=== PATIENT | male | born 1980 | race Caucasian/White ===

== ENCOUNTER 2021-11-11 17:41 | Emergency (ER) | payer MEDICAID ==
[~2021-11-11] VITALS: Ht 175.3 cm; Wt 84.5 kg
[2021-11-11] MEDS ORDERED: ketorolac trometh inj. 60 MG/2 ML VIAL IM ONE (18:15)
[2021-11-11] MEDS ORDERED: acetaminophen 325mg tablet PO ONE (18:15)
[2021-11-11] MEDS ORDERED: ondansetron 4mg rapidly disintigrating tab PO ONE (18:15)
[2021-11-11] MEDS ORDERED: SUMAtriptan succ. 6 MG/0.5ml vial SQ ONE (18:15)
[2021-11-11 18:39] VITALS: BP 139/84
== END 2021-11-11 18:41 | disposition home or self-care (01) ==
LOC: ER 17:42
DX: G43.909 Migraine, unspecified, not intractable, without status migrainosus (principal)
CPT/HCPCS: 96372; 99284; J1885; J3030

== ENCOUNTER 2021-11-11 22:48 | Emergency (ER) | payer MEDICAID ==
[~2021-11-11] VITALS: Ht 175.3 cm; Wt 85.5 kg
[2021-11-11 23:13] VITALS: BP 143/98
[2021-11-12] MEDS ORDERED: diphenhydrAMINE 25mg capsule PO ONE (00:45)
[2021-11-12] MEDS ORDERED: predniSONE 20 mg tablet PO ONE (00:50)
== END 2021-11-12 01:15 | disposition home or self-care (01) ==
LOC: ER 22:48
DX: R11.10 Vomiting, unspecified (principal); T50.995A Adverse effect of other drugs, medicaments and biological substances, initial encounter; G43.909 Migraine, unspecified, not intractable, without status migrainosus; Y92.89 Other specified places as the place of occurrence of the external cause
CPT/HCPCS: 93005; 99283; J7512; Q0163

== ENCOUNTER 2024-11-08 06:22 | Emergency (ER) | payer MEDICAID, OTHER ==
[~2024-11-08] VITALS: Ht 172.7 cm; Wt 104.5 kg
[2024-11-08 06:43] LABS: MEAN PLATELET VOLUME 7.9 FL (7.4-10.4); RED CELL DISTRIBUTION WIDTH 14.7 % (11.5-14.5)
[2024-11-08 06:47] VITALS: BP 143/88; PULSE 89; RESP 16; TEMP 98.4; O2SAT 96
[2024-11-08 06:52] LABS: LEUKOCYTE ESTERASE ,URINE NEGATIVE (Neg); NITRITES, URINE NEGATIVE (Neg); OCCULT BLOOD,URINE NEGATIVE (Neg)
[2024-11-08 06:54] LABS: UA COLLECTION TYPE CLN CATCH MIDSTREAM
[2024-11-08 07:12] LABS: CREATININE 1.38 MG/DL (0.60-1.10); ETHANOL 114 MG/DL (<10); TOTAL CARBON DIOXIDE 23.1 MMOL/L (24-32); eCRCL 67 ML/MIN; eGFR 57 ML/MIN
--- NOTE | 2024-11-08 07:19 | Physician Documentation ---
History of Present Illness ~ Chief Complaint: 5150 Stated Complaint: HAND LAC Time Seen by MD: 06:28 Primary Medical Doctor: [facility] Mode of Arrival: EMS, Other HPI 44-year-old male presenting for suicidal thoughts. Patient reports that he got into a fight with his family and was abandoned here in [place]. His family abbey es in [place]. Reports that they were all up here camping together and he got into a huge argument with them and they left. He reports that this happened yesterday and that since that he has been having suicidal thoughts. Reports that he has been thinking about taking a whole bunch of medication and killing himself. The patient recently returned to [place] from [place] where he was in rehab for methamphetamine abuse and dependence. He states that he has been sober about eight months now. Medication Reconciliation Allergies: Coded Allergies: No Known Allergies (Unverified , 11/08/24) Scheduled Atorvastatin Calcium* (Lipitor*), 1 TAB PO DAILY, (Reported) Clopidogrel Bisulfate (Plavix), 1 TAB PO DAILY, (Reported) Irbesartan* (Avapro*), 1 TAB PO DAILY, (Reported) Pantoprazole Sodium (PROTONIX tablet), 1 TAB PO DAILY, (Reported) Quetiapine Fumarate (Seroquel), 1 TAB PO HS, (Reported) Sertraline Hcl* (Zoloft*), 1 TAB PO DAILY, (Reported) Trazodone HCl (Trazodone HCl), 1 TAB PO HS, (Reported) Scheduled PRN Rizatriptan Benzoate (Rizatriptan), 1 TAB PO BID PRN for headache, (Reported) Past Medical History Past Medical History: Migraine Past Surgical History: noncontributory Drug Use: none Lives In: Home Physical Exam Vital Signs: Temperature: 98.4, Source: Oral, Heart Rate: 89, Respiratory Rate: 16, BP: 143/88, Pulse Oximetry: 96, Weight: 104.550 Oxygen Flow Rate: 0 Physical Exam I have reviewed the triage vitals. CONST: Well developed and well nourished. In no acute distress HENT: Head Atraumatic EYES: Pupils are equal, round and reactive to light. Normal conjunctiva NECK: Normal range of motion. Supple. CARDIO: Normal rate and regular rhythm. No murmurs, rubs, or gallops. S1, S2. PULM/CHEST: No respiratory distress. Lungs clear to auscultation. No wheeze ABD: Soft and nontender. Nondistended. Bowel sounds normal. No guarding. : Exam deferred MSK: No edema. No deformity. NEURO: Alert and oriented to person, place and time. Moving all extremities SKIN: Warm and dry. PSYCH: Normal mood and affect. Good eye contact. Progress Results/Orders Results/Orders Orders - SADE FITCH MD Med Rec (11/08/24 06:27) Close Observation Level (11/08/24 06:27) Covid19 Binax Poc Result Entry (11/08/24 06:27) 1799.11 (11/08/24 ) Completed Orders - SADE FITCH MD Cbc/Diff (11/08/24 06:27) Urinalysis (11/08/24 06:27) Drug Screen, Urine (11/08/24 06:27) Ethanol (11/08/24 06:27) TSH (11/08/24 06:27) BMP (11/08/24 06:27) Regular Diet (11/08/24 Lunch) Store Meds In Pharmacy (Store Meds In Ph (11/08/24 07:05) Quetiapine Fumarate Tablet (Seroquel) (11/08/24 07:25) Trazodone Tablet (Desyrel Tablet) (11/08/24 07:25) Quetiapine Fumarate Tablet (Seroquel) (11/08/24 07:25) Trazodone Tablet (Desyrel Tablet) (11/08/24 20:00) Quetiapine Fumarate Tablet (Seroquel) (11/08/24 21:00) Vital Signs 11/08/24 11/08/24 11/08/24 06:30 06:47 06:47 Temp 98.4 98.4 Pulse 89 89 Resp 16 18 16 B/P (MAP) 143/88 143/88 (106) Pulse Ox 96 96 O2 Flow Rate 0 0 Laboratory Tests Test 11/08/24 06:31 11/08/24 06:35 Urine Specimen Description Cln catch midstream Urine Color Yellow Urine Clarity Clear Urine pH 6.0 Urine Specific [employer] 1.025 Urine Protein Negative Urine Glucose (UA) Negative Urine Ketones Negative Urine Occult Blood Negative Urine Nitrite Negative Urine Bilirubin Negative Urine Urobilinogen 0.2 Urine Leukocyte Esterase Negative Volume Urine Centrifuged 10 ml Urine Comment Urine Opiates Screen Negative Urine Methadone Screen Negative Urine Fentanyl Screen Negative Urine Barbiturates Screen Negative Urine Phencyclidine Screen Negative Urine Amphetamines Screen Negative Urine Benzodiazepines Screen Negative Urine Cocaine Screen Negative Urine Cannabinoids Screen Negative Drug Screen Comment SARS-CoV-2 Antigen (Rapid) Negative White Blood Count 9.8 Red Blood Count 4.82 Hemoglobin 13.4 L Hematocrit 39.6 L Mean Corpuscular Volume 82.1 Mean Corpuscular Hemoglobin 27.8 Mean Corpuscular Hemoglobin Concent 33.8 Red Cell Distribution Width 14.7 H Platelet Count 283 Mean Platelet Volume 7.9 Neutrophils (%) (Auto) 64.5 Lymphocytes (%) (Auto) 24.8 Monocytes (%) (Auto) 8.1 Eosinophils (%) (Auto) 1.7 Basophils (%) (Auto) 0.9 Neutrophils # (Auto) 6.3 Lymphocytes # (Auto) 2.4 Monocytes # (Auto) 0.8 Eosinophils # (Auto) 0.2 Basophils # (Auto) 0.1 CBC Comment Sodium Level 136 Potassium Level 3.8 Chloride Level 103 Carbon Dioxide Level 23.1 L Anion Gap 10 Blood Urea Nitrogen 26 H Creatinine 1.38 H Estimated GFR/1.73 m2 57 BUN/Creatinine Ratio 18.8 Glucose Level 96 Calcium Level 8.2 L Albumin 4.4 Thyroid Stimulating Hormone (TSH) 2.63 Chemistry Comments Ethyl Alcohol Level 114 H Medical Decision Making Differential Diagnosis 44-year-old male presenting initially with some suicidal thoughts. Patient's lab work indicating some slight alcohol intoxication. Other than this he was medically cleared for psychiatric evaluation. Our mental health professional did assess the patient's. Patient is no longer suicidal and denies any suicidal ideations at this time now that he is clinically sober. He has some psychosocial issues and got into an argument with his family and the source of this problem appears to be likely more behavioral/psycho social in nature. Currently the patient states that he is not suicidal nor homicidal and feels safe to be discharged. Through shared decision-making with our mental health professional, the patient and myself we assessed the patient is stable and safe for discharge home. Advised him to follow up with psychotherapy and mental health. Return to the ED with any acutely worsening symptoms. Departure Disposition: 01 HOME / SELF CARE / HOMELESS Impression: Primary Impression: Psychosocial distress Additional Impression: Alcohol intoxication Condition: Improved Discharge Instructions: Suicidal Feelings: How to Help Yourself Additional Instructions: Please follow up with psychotherapy/mental health services in the next 1-2 weeks. Please abstain from further alcohol use or drug use. Return to the ED with any acutely worsening symptoms. Referrals: NO PRIMARY CARE PROVIDER (PCP) Signature Scribe Signature: 1 Attestation: 1 SADE FITCH MD Nov 08, 2024 07:19
[2024-11-08 07:27] LABS: URINE AMPHETAMINE SCREEN NEGATIVE (Neg); URINE BARBITUATE SCREEN NEGATIVE (Neg); URINE BENZODIAZEPINES SCREEN NEGATIVE (Neg); URINE CANNABINOID SCREEN NEGATIVE (Neg); URINE COCAINE SCREEN NEGATIVE (Neg); URINE METHADONE SCREEN NEGATIVE (Neg); URINE OPIATE SCREEN NEGATIVE (Neg); URINE PHENCYCLIDINE SCREEN NEGATIVE (Neg)
[2024-11-08] MEDS ORDERED: CLOP-32 PO (13:50)
[2024-11-08] MEDS ORDERED: SERT50TA PO (13:50)
[2024-11-08] MEDS ORDERED: ATOR40TA PO (13:50)
[2024-11-08] MEDS ORDERED: RIZA10TA98 PO (13:54)
[2024-11-08] MEDS ORDERED: PANT-47 PO (13:54)
[2024-11-08] MEDS ORDERED: QUET-1 PO (13:54)
[2024-11-08] MEDS ORDERED: TRAZ300T2 PO (13:54)
[2024-11-08] MEDS ORDERED: IRBE75TA30 PO (13:54)
== END 2024-11-08 18:26 | disposition home or self-care (01) ==
LOC: ER 06:23
DX: F10.129 Alcohol abuse with intoxication, unspecified (principal); F15.10 Other stimulant abuse, uncomplicated; G43.909 Migraine, unspecified, not intractable, without status migrainosus; Z79.899 Other long term (current) drug therapy; Z20.822 Contact with and (suspected) exposure to COVID-19; Y90.6 Blood alcohol level of 120-199 mg/100 ml
CPT/HCPCS: 36415; 80048; 80305; 80320; 81003; 84443; 85025; 87811; 99285; A6258

== ENCOUNTER 2024-11-08 21:46 | Inpatient (IN) | payer MEDICAID, OTHER ==
[~2024-11-08] VITALS: Ht 172.7 cm; Wt 102.3 kg
[~2024-11-08 21:46] MED LIST: ATOR40TA PO; CLOP-32 PO; IRBE75TA30 PO; PANT-47 PO; QUET-1 PO; RIZA10TA98 PO; SERT50TA PO; TRAZ300T2 PO
--- NOTE | 2024-11-08 22:09 | ELECTROCARDIOGRAPH REPORT ---
[facility] Test Date: 2024-11-08 Test Time: 22:06:56 Pat Name: FELA KOENIG Department: EMERGENCY ROOM Room: Gender: M Vocational Nurse Lvn: : 1980 Requested By: AXEL COVARRUBIAS Order Number: [id number] Reading MD: Measurements Intervals [place] Rate: 93 P: 72 MN: 151 QRS: 50 QRSD: 107 T: 41 QT: 367 QTc: 457 Interpretive Statements Sinus rhythm Borderline ST depression, diffuse leads Baseline wander in lead(s) I Please click the below link to view image of tracing.
--- NOTE | 2024-11-08 22:15 | Physician Documentation ---
History of Present Illness ~ Chief Complaint: Stroke Alert Stated Complaint: HEADACHE Time Seen by MD: 22:14 Primary Medical Doctor: [facility] 44-year-old male, history of complicated migraines as well as reported TIAs, who presents with a headache and difficulty speaking. Onset about 1 hour ago. The patient was actually seen here earlier in the emergency department for a mental health evaluation and hand laceration per Here now, he reports a severe generalized headache. He states it feels similar to past migraines. He reports the light hurts his eyes. He is having trouble speaking. He tells me this has happened in the past. He also tells me that he has had 2 TIAs in the past that also cause him to have difficulty speaking. No fever, neck pain, vomiting, abdominal pain, or other symptoms at this time. He tells me when he gets migraine he normally takes a Triptan, but he does not currently have it. EMS gave Toradol. Medication Reconciliation Allergies: Coded Allergies: No Known Allergies (Unverified , 11/08/24) Scheduled Atorvastatin Calcium* (Lipitor*), 1 TAB PO DAILY, (Reported) Clopidogrel Bisulfate (Plavix), 1 TAB PO DAILY, (Reported) Irbesartan* (Avapro*), 1 TAB PO DAILY, (Reported) Pantoprazole Sodium (PROTONIX tablet), 1 TAB PO DAILY, (Reported) Quetiapine Fumarate (Seroquel), 1 TAB PO HS, (Reported) Sertraline Hcl* (Zoloft*), 1 TAB PO DAILY, (Reported) Trazodone HCl (Trazodone HCl), 1 TAB PO HS, (Reported) Scheduled PRN Rizatriptan Benzoate (Rizatriptan), 1 TAB PO BID PRN for headache, (Reported) Past Medical History Past Medical History: Migraine Past Surgical History: noncontributory Drug Use: none Lives In: Home Review of Systems Constitutional: Denies: fever Neurological: Reports: speech problem, headache Physical Exam Vital Signs: Temperature: 98.1, Source: Oral, Heart Rate: 96, Respiratory Rate: 14, BP: 141/83, Pulse Oximetry: 94, Weight: 102.300 Oxygen Flow Rate: 0 General Appearance General: This is a young man, who is lying in bed with his eyes closed, not in distress HEENT: Atraumatic, no facial droop. He does have dysarthria and difficult to understand speech Heart: Mild tachycardic, appears regular Lungs: normal work of breathing, normal oxygen saturation on room air Abdomen: Soft, nondistended, nontender Neuro: Alert and oriented. He does have dysarthria. No paresthesias to light touch in all 4 extremities. Normal strength in all 4 extremities. Psychiatric: Appears uncomfortable but is cooperative with exam Progress Results/Orders Results/Orders Orders - AXEL COVARRUBIAS MD Monitor (11/08/24 22:05) 2 Large Bore Ivs (11/08/24 22:05) Chest,Single View (11/08/24 22:44) Accucheck (11/08/24 22:05) Ct Stroke Alert (11/08/24 22:05) Cta Neck/Head (11/08/24 22:35) Page Hospitalist (11/09/24 00:47) Completed Orders - AXEL COVARRUBIAS MD Cbc/Diff (11/08/24 22:05) Electrocardiogram (11/08/24 22:05) Chest,Single View (11/08/24 22:44) Ct Stroke Alert (11/08/24 22:05) BMP (11/08/24 22:05) PTT (11/08/24 22:05) Pt Inr (11/08/24 22:05) Prochlorperazine Inj (Compazine Inj) (11/08/24 22:25) Diphenhydramine Inj (Benadryl Inj.) (11/08/24 22:25) Normal Saline 1000ml (0.9% Sodium Chlori (11/08/24 22:25) Sumatriptan Succ. Inj. (Imitrex 6mg Inj. (11/08/24 22:25) Cta Neck/Head (11/08/24 22:35) Iohexol 350mg/Ml 100ml (Omnipaque 350mg/ (11/08/24 22:45) Hgb A1c (11/08/24 22:40) PBNP (11/08/24 22:40) Vital Signs 11/08/24 11/08/24 11/08/24 11/09/24 21:59 22:48 22:50 00:12 Temp 98.1 Pulse 96 90 82 Resp 14 16 16 16 B/P (MAP) 141/83 131/89 133/79 (97) Pulse Ox 94 96 95 O2 Flow Rate 0 0 Laboratory Tests Test 11/08/24 22:40 White Blood Count 8.1 Red Blood Count 5.02 Hemoglobin 13.9 L Hematocrit 41.1 L Mean Corpuscular Volume 81.8 Mean Corpuscular Hemoglobin 27.6 Mean Corpuscular Hemoglobin Concent 33.8 Red Cell Distribution Width 15.3 H Platelet Count 280 Mean Platelet Volume 8.2 Neutrophils (%) (Auto) 71.1 Lymphocytes (%) (Auto) 19.7 L Monocytes (%) (Auto) 6.7 Eosinophils (%) (Auto) 1.2 Basophils (%) (Auto) 1.3 H Neutrophils # (Auto) 5.7 Lymphocytes # (Auto) 1.6 Monocytes # (Auto) 0.5 Eosinophils # (Auto) 0.1 Basophils # (Auto) 0.1 CBC Comment Prothrombin Time 10.6 INR International Normalized Ratio 1.0 Activated Partial Thromboplast Time 27 Coagulation Comments Sodium Level 138 Potassium Level 3.4 L Chloride Level 104 Carbon Dioxide Level 19.8 L Anion Gap 14 Blood Urea Nitrogen 24 H Creatinine 1.26 H Estimated GFR/1.73 m2 63 BUN/Creatinine Ratio 19.0 Glucose Level 125 H Hemoglobin A1c 5.6 Calcium Level 9.0 Pro-B-Type Natriuretic Peptide 76 Albumin 4.6 Chemistry Comments EKG/XRAY/CT/US/VASC/MRI EKG : Additional Comment I personally interpreted the EKG and this shows: Sinus rhythm, rate 93, QTC 457, no STEMI, possible mild ST depression in the lateral leads Chest X-Ray : Additional Comments I personally reviewed the x-ray, and it shows: No pulmonary edema, consolidation, or pneumothorax CT : Impression CT head: I personally reviewed the CT scan, and this shows no acute hemorrhage, mass, or edema CTA head and neck: I personally reviewed the CT scan, and this shows no LVO Consults/PCP Consults/PCP : Additional Comment Consult: I spoke to stroke Neurology, who will evaluate the patient. Consult: I spoke to the internal medicine service, for admission in the hospital Medical Decision Making Differential Dx:Considerations: Include: CVA, Electrolyte imbalance, Encephalopathy, Mass lesion, Subarachnoid Hemorrhage, TIA Additional Information Differential includes complicated migraine, substance abuse Assessment The patient presents with a headache and difficulty with speech. Prior to my evaluation, the stroke pathway was initiated. On my history and exam, this appears more likely consistent with a complicated migraine, similar to previous. I did treat him with a migraine cocktail. However, he does report a history of TIA. Stroke Neurology was consulted as above. His workup was unremarkable, including his brain imaging. Per neurology recommendations he will be admitted to the medicine service for a brain MRI and further evaluation. Departure Impression: Primary Impression: Headache Additional Impression: Difficulty with speech Referrals: NO PRIMARY CARE PROVIDER (PCP) Signature Scribe Signature: ester Attestation: AXEL Velásquez MD Nov 08, 2024 22:15
[2024-11-08] MEDS: normal saline 1000ml 1,000 ML IV ONE (22:34)
[2024-11-08] MEDS: SUMAtriptan succ. 6 MG/0.5ml vial SQ ONE (22:36)
--- NOTE | 2024-11-08 22:48 | RADIOLOGY REPORT ---
EXAM: CT CT STROKE ALERT INDICATION: Stroke Alert TECHNIQUE: CT of the head without intravenous contrast. Radiation Dose Information: CT Dose: CTDI volume is 59.81 mGy. Dose-length product is 1038.6 mGy*cm The dose indicators for CT are the volume Computed Tomography (CT) Dose Index (CTDIvol) and the Dose Length Product (DLP), and are measured in units of mGy and mGy-cm, respectively. These indicators are not patient dose, but values generated from the CT scanner acquisition factors. The report includes radiation exposure data for exposures received during this examination. COMPARISON: None FINDINGS: The cerebral parenchyma appears to be normal configuration and attenuation. The ventricles, cisterns , and sulci appear age-appropriate. There is no evidence for acute territorial infarct, hemorrhage, or mass effect. The orbits are normal. The visualized paranasal sinuses and mastoid air cells are clear. The soft t issues and osseous structures appear within normal limits. IMPRESSION: 1. No acute territorial infarct, intracranial hemorrhage, or mass effect. If clinical symptoms persis t, MRI is suggested in further evaluation. Critical Result: Stroke Alert Findings discussed with AXEL COVARRUBIAS at 11/08/2024 10:45 PM, and acknowledged receipt and understa nding of the findings.
[2024-11-08 22:50] LABS: MEAN PLATELET VOLUME 8.2 FL (7.4-10.4); RED CELL DISTRIBUTION WIDTH 15.3 % (11.5-14.5)
[2024-11-08 22:56] LABS: eCRCL 74 ML/MIN; eGFR 63 ML/MIN
[2024-11-08 22:59] LABS: APTT 27 SECONDS (22-32); INR 1.0 INR
--- NOTE | 2024-11-08 23:01 | RADIOLOGY REPORT ---
CHEST RADIOGRAPH Indication: Stroke Alert Technique: Single frontal view of the chest was obtained COMPARISON: None FINDINGS: Lines and Tubes: None Lungs: Clear Pleura: No effusion. No pneumothorax. Cardiomediastinal contours: Unremarkable Bones: Unremarkable IMPRESSION: 1. No acute disease.
--- NOTE | 2024-11-08 23:30 | [facility] CONSULT REPORT ---
[facility] Procedure Note [facility] Procedure Note Consult [facility] Note # Demographics Consult Type: Acute Stroke Level 1 (0-4.5 hrs) Patient Location: Emergency Room First Name: FELA Last Name: ARYA Date of : 1980 Age: 44 Gender: Male Facility: [facility] Time of Initial Page (): 11/08/2024 22:29 Time of Return Call (): 11/08/2024 22:29 # HPI History: 44 y/o M with Hx of complex migraine with speech difficulty presents with migraine with speech difficulty. # Scores Time of exam and NIHSS (): 11/08/2024 22:36 Level of Consciousness 1a: [0] = Alert; keenly responsive LOC Questions 1b: [0] = Answers both questions correctly LOC Commands 1c: [0] = Performs both tasks correctly Best Gaze 2: [0] = Normal Visual 3: [0] = No visual loss Facial Palsy 4: [0] = Normal symmetrical movements Motor Arm Left 5a: [0] = No drift Motor Arm Right 5b: [0] = No drift Motor Leg Left 6a: [0] = No drift Motor Leg Right 6b: [0] = No drift Limb Ataxia 7: [0] = Absent Sensory 8: [0] = Normal Best Language 9: [1] = Nvru-[id number] aphasia Dysarthria 10: [0] = Normal Extinction and Inattention 11: [0] = No abnormality NIHSS Total: 1 # Data Time Head CT personally read by me (): 11/08/2024 23:[address]: negative # Assessment Impression: - Stroke Mimic - Migraine (Complex) # Plan Thrombolytic/Intervention: NOT IV Thrombolysis or IA Intervention candidate Thrombolytic Exclusion (< 3 hour window): - non-disabling deficit Intraarterial Exclusion: - clinical exam not consistent with presence of large vessel occlusion (LVO), can reconsider if LVO found on vascular imaging Imaging: (urgency: routine): - CT Angiogram Head and CT Angiogram Neck - MRI Brain without contrast Medication: - migraine cocktail: Toradol 30 mg IV + Benadryl 25 mg IV + antiemetic IV Other: - If patient has any neurological deterioration please call me back immediately - would not pursue stroke work-up if MRI is negative # Logistics Attestation of consult completion: The patient is located at: [facility]. Facility staff participated in the visit. I performed this telemedicine visit from my offsite office utilizing interactive 2 way audio and visual telecommunication technology. Total time spent in telemedicine encounter: I spent 30 minutes reviewing c linical data and/or imaging, obtaining history, examining the patient, communicating with the onsite care team, and in preparation of this report. # Demographics First Name: FELA Last Name: ARYA Facility: [facility] Electronically signed at 11/08/2024 23:29 ([place] Time) by Brianda Bell DO Neuro Consult Order placed for: GIULIA Hernandez DO Nov 08, 2024 23:30
--- NOTE | 2024-11-09 00:29 | RADIOLOGY REPORT ---
INDICATION: Headache, slurred speech COMPARISON: None TECHNIQUE:CTA neck with intravenous contrast. 3D/MIP image postprocessing was performed and images we re used for interpretation and reporting. Radiation Dose Information: CT Dose: CTDI volume is 15.97 mGy. Dose-length product is 612.67 mGy*cm FINDINGS: CTA neck: 5 mm aneurysm arising from the distal cervical portion of the right internal carotid artery (series 4 , image 321). The visualized thoracic aortic arch and proximal great vessels are unremarkable. The left common, int ernal and external carotid arteries are otherwise within normal limits. The right common, internal an d external carotid arteries are otherwise within normal limits. The cervical segments of the right an d left vertebral arteries are within normal limits. The limited visualized lung apices are clear. The surrounding soft tissues and osseous structures are otherwise unremarkable. CTA head: The caliber and course of the distal internal carotid arteries is unremarkable. No evidence of high-g rade stenosis or occlusion of the proximal branch vessels of the [place]. No evidence of la rge aneurysm or arteriovenous malformation. IMPRESSION: 1. 5 mm right internal carotid artery aneurysm. 2. No evidence of hemodynamically significant cervical stenosis or dissection.
[2024-11-09] MEDS ORDERED: potassium Cl 40MEQ/1/2NS 520ml 520 ML IV PRN (01:25)
[2024-11-09] MEDS ORDERED: magnesium sulf-water 2g/50mL 50 ML IV PRN (01:25)
[2024-11-09] MEDS ORDERED: magnesium sulf-water 4G/100mL 100 ML IV PRN (01:25)
[2024-11-09] MEDS ORDERED: mag hydrox/Alum hydrox/simeth 30ml oral suspension PO PRN (01:25)
[2024-11-09] MEDS ORDERED: magnesium Cl slow-release 64mg tablet PO PRN (01:25)
[2024-11-09] MEDS ORDERED: acetaminophen 650mg rectal suppository RC PRN (01:25)
[2024-11-09] MEDS ORDERED: ondansetron 4mg rapidly disintigrating tab PO PRN (01:25)
[2024-11-09] MEDS ORDERED: ondansetron/PF 4mg/2ml inj IV PRN (01:25)
[2024-11-09] MEDS ORDERED: magnesium hydroxide 30ml (MOM) UD suspension PO PRN (01:25)
[2024-11-09] MEDS ORDERED: potassium Cl 20 mEq SR tablet PO PRN (01:25)
[2024-11-09] MEDS ORDERED: metoclopramide 5 mg/ml inj IV PRN (01:25)
--- NOTE | 2024-11-09 01:30 | HISTORY AND PHYSICAL-Residence ---
History & Physical Providers to CC Resident Creating Document: RICH ROJAS, MEERA ~ History of Present Illness Primary Medical Doctor: [facility] Reason for Admit\Complaint: Headache, slurred speech History of Present Illness This is a 44-year-old male with complex migraine, TIA, unspecified psychiatric disorder presented to the ED with a chief complaint of severe headache and slurred speech. Patient endorses that he has headache was 10/10 and had difficulty forming words for about 90 minutes. He also had associated bilateral lower extremity weakness which concerned him and hence came to the ED. he presented to the ED yesterday for suicide ideation and was cleared by Mental Health and was discharged yesterday. He has a history of methamphetamine, cocaine abuse in his finished rehab in [place] and has been clean for eight months now. He denies any paresthesia, numbness, difficulty walking, fever, vomiting. Allergies: Coded Allergies: No Known Allergies (Unverified , 11/08/24) Home Medications Home Medications Active Reported Avapro* (Irbesartan) 75 Mg Tablet 1 Tab PO DAILY PROTONIX tablet (Pantoprazole Sodium) 40 Mg Tablet.dr 1 Tab PO DAILY Seroquel (Quetiapine Fumarate) 100 Mg Tablet 1 Tab PO HS Trazodone HCl 300 Mg Tablet 1 Tab PO HS Rizatriptan (Rizatriptan Benzoate) 10 Mg Tab.rapdis 1 Tab PO BID PRN Zoloft* (Sertraline HCl) 50 Mg Tablet 1 Tab PO DAILY Plavix (Clopidogrel Bisulfate) 75 Mg Tablet 1 Tab PO DAILY Lipitor* (Atorvastatin Calcium) 40 Mg Tablet 1 Tab PO DAILY Past Medical History Past Medical History Hypertension, migraine, TIA, unspecified psychiatric disorder Past Surgical History Surgical History Comment Orthopedic surgeries Past Social History Social History Comment Denies smoking or alcohol use. Has a history of methamphetamine and cocaine use in past Drug Use: None Lives In: Home ROS ROS Reviewed in full and negative except for the pertinent positives in HPI Exam Vitals: Vital Signs Date Time Temp Pulse Resp B/P (MAP) Pulse Ox O2 Delivery O2 Flow Rate FiO2 11/09/24 00:12 82 16 133/79 (97) 95 0 11/08/24 21:59 98.1 General: General: well developed, well nourished. Awake , alert, and oriented x4, resting comfortably in the bed, in no acute distress . HEENT: Atraumatic, normocephalic, EOMI, anicteric sclera B; pink conjunctiva; PERRLA, normal oropharynx, moist oral and nasal mucosa. Tympanic membrane , nose , throat clear. Neck: Trachea midline. Supple, full range of motion, no JVD, bruit , hepatojugular reflex , lymphadenopathy or masses, or other lesions Cardiac: Regular rhythm, regular rate no murmurs, rubs, or gallops. Normal S1 and S2, no S3 noticed. PMI is normal. Respiratory: Equal breath sounds bilaterally, no tachypnea; lungs clear to auscultation bilaterally, no wheezing ,rub or rales, or crackles. Chest wall is symmetric and without deformity. No signs of trauma. Chest wall is nontender. No signs of respiratory distress. Resonance is normal upon percussion bilaterally. Gastrointestinal: Abdomen symmetric, non-distended, soft, non-tender, normal bowel sounds x4 quadrant, normoactive, no hepatosplenomegaly , no masses , no bruit, no flank pain bilaterally. No voluntary guarding, rebound, or rigidity. No tenderness to percussion. No pulsatile masses. Equal femoral pulses. No Corey's sign or McBurney point tenderness. Back; no CVA tenderness bilaterally, no deformities. Neck and back are without deformity as well. No tenderness noted on palpation of the spinous processes. Spinous processes are midline. Cervical, thoracic, and lumbar paraspinal muscles are not tender and are without spasm. : normal external genitalia, without lesions, swelling, masses or tenderness. Musculoskeletal: Extremities, normal range of motion, non-tender, muscle strength 4/5 x 4. Negative Homans signs bilaterally on lower extremity. Distal pulses full symmetrical, no clubbing, cyanosis , edema. Neurological: Speech is clear, alert, and oriented x 4. No motor or sensory deficit, deep tendon reflexes normal, cerebellar intact. Cranial nerves II-XII intact. Psych: Alert and or appropriate, normal affect. Vascular: Good distal pulses, which are equal x4; capillary refill less than 2 seconds. Skin: Warm, dry, no pallor, no rash or petechiae. Diagnostic Data Last Recorded Lab Results: 11/08/24223911/08/[id number] Diagnostic Data: Laboratory Tests Test 11/08/24 22:40 Prothrombin Time 10.6 SECONDS (9.0-12.0) INR International Normalized Ratio 1.0 INR Activated Partial Thromboplast Time 27 SECONDS (22-32) Coagulation Comments Advance Care Planning Advanced Care plannin - 30 Minutes (I spent a total of 17 minutes on reviewing various resuscitative measures/ ACP with the patient at the time of admission. The patient has decided on a DNR code status) Additional Plan Complex migraine vs TIA vs acute CVA CT head shows no acute intracranial abnormalities. [facility] neurology was consulted who recommend CTA of head and neck, MRI CTA head and neck shows 1. 5 mm right internal carotid artery aneurysm. 2. No evidence of hemodynamically significant cervical stenosis or dissection. Patient received migraine cocktail including Imitrex 6 mg subcutaneous, Benadryl 25 mg IV, Compazine 10 mg IV in the ER. Follow up with MRI, echocardiogram. Continue telemetry monitoring. Patient is currently on aspirin 81 mg and atorvastatin 40 mg p.o. daily Mild hypokalemia Replace potassium per protocol GERONIMO Metabolic acidosis Hypermagnesemia BUN is slightly elevated at 24, creatinine 1.26, bicarbonate 19.8, magnesium 2.7. Patient received 1 L bolus of NS in the ER. IV fluids NS at the rate of 100 mL/hour History of methamphetamine, cocaine abuse U tox pending. Follow up Unspecified psychiatric disorder Code Status: DNR DVT Prophylaxis: Heparin Analgesia/Sedation: [place] p.r.n. Lines/Tubes: PIV Gi Prophylaxis: None Nutrition: Regular diet after passing swallow study PT: Yes Prognosis: Guarded Disposition: Admit to neuro with telemetry monitoring Rich Gao MD Internal Medicine Resident PGY-1 Date of Service: Nov 09, 2024 Billing Provider: SANIA ANAYA III, DEEPIKA BANDI, RES Nov 09, 2024 01:30
[2024-11-09 02:42] LABS: CREATININE 1.26 MG/DL (0.60-1.10); PRO BRAIN NATRIURETIC PEPTIDE 76 PG/ML (0-125); TOTAL CARBON DIOXIDE 19.8 MMOL/L (24-32)
[2024-11-09] MEDS: normal saline 1000ml 1,000 ML IV SCH (06:40)
[2024-11-09 08:00] VITALS: BP 152/95; PULSE 57; RESP 16; TEMP 98; O2SAT 97
[2024-11-09] MEDS: K and/or MAG REPLACEMENT MC SCH (08:00)
[2024-11-09] MEDS: docusate sod 100mg capsule PO SCH (08:00)
[2024-11-09] MEDS: potassium Cl 20 mEq SR tablet PO PRN (09:15)
[2024-11-09] MEDS: aspirin 81mg, enteric-coated 1 TAB TABLET.DR PO SCH (09:16)
[2024-11-09] MEDS: heparin, porcine 5000 units/ml vial SQ SCH (09:16)
[2024-11-09 10:00] VITALS: BP 132/76; PULSE 53; RESP 16; TEMP 98.2; O2SAT 96
--- NOTE | 2024-11-09 15:54 | RADIOLOGY REPORT ---
PROCEDURE: MR MRI HEAD INDICATION: Stroke-like symptoms, SLURRED SPEECH, LKN 2100 EXAM DATE: 11/09/2024 02:33 PM COMPARISON: None TECHNIQUE: MRI of the brain without intravenous contrast. FINDINGS: Limited by motion. Diffusion weighted images of the brain demonstrate no evidence of acute infarction. There is no evidence of acute intracranial hemorrhage, extra-axial collection, mass effect, midline s hift, herniation or hydrocephalus. The ventricles, sulci and cisterns appear age appropriate. The signal intensities of the brain parenchyma are within normal limits. There are no signal abnormalities on the susceptibility weighted sequences. The major vascular flow voids are present. The visualized paranasal sinuses and mastoid air cells are clear. The surrounding soft tissues and o sseous structures are unremarkable. IMPRESSION: 1. No evidence of acute infarction, intracranial hemorrhage, mass effect or hydrocephalus. HS:Y
[2024-11-09 18:00] VITALS: BP 139/87; PULSE 77; RESP 16; TEMP 97.6; O2SAT 98
[2024-11-09] MEDS: nicotine 14mg patch - 24hr TD ONE (19:49)
[2024-11-09 20:00] VITALS: RESP 16; O2SAT 98
[2024-11-09] MEDS: HYDROcodone/acetaminophen 5mg/325mg tablet PO PRN (20:25)
--- NOTE | 2024-11-09 20:52 | [facility] CONSULT REPORT ---
[facility] Procedure Note [facility] Procedure Note Consult [facility] Note # Demographics Type of EEG Read: - Routine EEG - video Patient Location: Inpatient First Name: Ace Last Name: Baldemar Date of : 1980 Age: 44 Gender: Male Facility: [facility] Time of Initial Page ([place] ): 11/09/2024 13:38 Time of Return Call ([place] Time): 11/09/2024 13:38 # EEG Interpretation Start Time of EEG Read ([place] Time): 11/09/2024 14:00 Stop Time of EEG Read ([place] Time): 11/09/2024 14:20 Duration: 0h 20m Technical Details: - The EEG electrodes were placed using the standard International 10-20 system of electrode placement. Video and an accessory EKG lead were used during the course of this study. - This study was recorded using the [employer] EEG software Indication: Possible seizure # Description Photic Stimulation: Performed Hyperventilation: NOT performed Phases Captured: - awake Symmetry: symmetric Posterior Dominant Rhythm: The record is continuous, of normal amplitude and bilaterally symmetrical. There is a well-developed posterior dominant rhythm at 10 Hz. There is a moderate amount of diffuse low amplitude 15-25 Hz beta activity and an appropriate amount of 4-7 Hz theta activity during wakefulness. No significant <4 Hz delta activity is present during wakefulness. Amplitude: normal Reactivity: yes Variability: yes Continuity: continuous EKG: NSR # Abnormalities Stimulation: - photic stimulation does NOT cause abnormalities Epileptiform Abnormalities: - NOT present Focal Slowing: no Seizure: - NOT present No push button events. Artifact: EKG artifact throughout # Impression Impression: normal # Clinical Correlation Clinical Correlation: A normal EEG does not exclude nor support the diagnosis of epilepsy. Additional Comments: Clinical correlation is recommended # Demographics First Name: Ace Last Name: Baldemar Facility: [facility] Neuro Consult Order placed for: Yes NONA CASTRO MD Nov 09, 2024 20:52
[2024-11-09 22:00] VITALS: BP 124/78; PULSE 71; RESP 18; TEMP 96.8; O2SAT 98
[2024-11-10 05:02] LABS: MEAN PLATELET VOLUME 8.1 FL (7.4-10.4); RED CELL DISTRIBUTION WIDTH 15.3 % (11.5-14.5)
[2024-11-10 05:22] LABS: LEUKOCYTE ESTERASE ,URINE NEGATIVE (Neg); NITRITES, URINE NEGATIVE (Neg); OCCULT BLOOD,URINE NEGATIVE (Neg)
[2024-11-10 05:24] LABS: CHOL/HDL RATIO 2.7 (0.00-4.99); CREATININE 1.13 MG/DL (0.60-1.10); LDL CHOLESTEROL 59 MG/DL (50-100); TOTAL CARBON DIOXIDE 23.4 MMOL/L (24-32); eCRCL 82 ML/MIN; eGFR 71 ML/MIN
[2024-11-10 05:27] LABS: UA COLLECTION TYPE NON-SPECIFIED
[2024-11-10 05:29] LABS: URINE AMPHETAMINE SCREEN NEGATIVE (Neg); URINE BARBITUATE SCREEN NEGATIVE (Neg); URINE BENZODIAZEPINES SCREEN NEGATIVE (Neg); URINE CANNABINOID SCREEN NEGATIVE (Neg); URINE COCAINE SCREEN NEGATIVE (Neg); URINE METHADONE SCREEN NEGATIVE (Neg); URINE OPIATE SCREEN POSITIVE (Neg); URINE PHENCYCLIDINE SCREEN NEGATIVE (Neg)
[2024-11-10 06:00] VITALS: BP 129/90; PULSE 61; RESP 18; TEMP 96.5; O2SAT 96
[2024-11-10] MEDS: pantoprazole 40mg Tablet.DR PO SCH (09:01)
[2024-11-10 10:00] VITALS: BP 126/69; PULSE 73; RESP 17; TEMP 97.5; O2SAT 95
--- NOTE | 2024-11-10 13:05 | [facility] CONSULT REPORT ---
[facility] Procedure Note [facility] Procedure Note Consult [facility] Note # Demographics Consult Type: General Neurology Patient Location: Inpatient First Name: Ace Last Name: Baldemar Date of : 1980 Age: 44 Gender: Male Facility: [facility] Time of Initial Page (): 11/10/2024 11:40 Time of Return Call ( Time): 11/10/2024 11:40 Phone Only Consult: 44 y/o M with a PMHx of migraine headaches, unspecified psychiatric disorder who presented to the ED with a headache and slurred speech. Evaluated by Neurology, thought to be complex migraine rather than stroke but was admitted for a work-up. MRI Brain without contrast negative and EEG normal. As per primary team, the patient endorsed that the headache is different from his typical migraines and he has b/l LE shaking and difficulty walking, without LOC but has trouble speaking and had one associated episode of bowel incontinence. Although the suspicion for seizure is low, I would recommend a prolonged EEG study to r/o any underlying predisposition to seizures as well as post contrast MRI. For now, I would hold off on antiseizure medications unless the EEG or MRI show any abnormalities. Phone Agreement: - phone consult deemed mutually sufficient for patient care # Plan Imaging: (urgency: routine): MRI Brain with contrast Diagnostic Test: extended EEG Other: - If patient has any neurological deterioration please call me back immediately # Logistics Attestation of consult completion: The patient is located at: [facility]. I performed this phone consultation from my offsite office Total time spent in telemedicine encounter: I spent 10 minutes in reviewing clinical data and/or imaging, obtaining history, communicating with the onsite care team, and in preparation of this report. # Demographics First Name: Ace Last Name: Baldemar Facility: [facility] Electronically signed at 11/10/2024 13:05 () by Phi Holman MD Neuro Consult Order placed for: Yes PHI HOLMAN MD Nov 10, 2024 13:05
--- NOTE | 2024-11-10 17:04 | DISCHARGE SUMMARY-Residence ---
Discharge Summary Providers to CC Resident Creating Document: ELIZABETH NOEL RES ~ Discharge Summary Admission Diagnosis: Stroke-like symptoms Hospital Course DATE OF ADMISSION: 11/09/24 DATE OF AMA: 11/10/24 Labs at the time of AMA WBC 4.8 Hemoglobin 13.1 Sodium 139 Potassium 3.4 Creatinine 1.13 A1c 4.6 CPK 328 Lactic acid-0.7 LDL-59 chol-134 BNP-76 U tox-positive for opiods. Head CT No acute territorial infarct, intracranial hemorrhage, or mass effect. If clinical symptoms persist, MRI is suggested in further evaluation. CTA head and neck 1. 5 mm right internal carotid artery aneurysm. 2. No evidence of hemodynamically significant cervical stenosis or dissection. Head MRI No evidence of acute infarction, intracranial hemorrhage, mass effect or hydrocephalus. EEG No seizure activity Discharge Diagnosis\Comment: Complex migraine TIA, CVA-ruled out Possible seizures GERONIMO, metabolic acidosis, Tree of methamphetamine and cocaine abuse Unspecified psychiatric disorder Operations\Procedures: None Consultants: None Complications: None Condition on DC: Stable Discharge Summary: HPI This is a 44-year-old male with complex migraine, TIA, unspecified psychiatric disorder presented to the ED with a chief complaint of severe headache and slurred speech. Patient endorses that he has headache was 10/10, sudden onset. This headache is different from the usual migraine headache. He also had slurring of speech for about 1 and 1/2 hour. He also had bilateral lower extremity weakness and felt wobbly. He also had bowel incontinence during this episode. He also had some tingling sensation in his fingers. He denied nausea, vomiting. Also denied retro-orbital pain, watering eyes. Denied pulsating sensation, phonophobia, photophobia. Patient was admitted for possible TIA/CVA, seizures. He was given migraine cocktail,Imitrex 6 mg subcutaneous, Benadryl 25 mg IV, Compazine 10 mg IV in the ER, which made him feel better. CT head was done which showed no intracranial abnormalities, [facility] was consulted, recommended CTA head and neck and MRI. CTA head and neck showed 5 mm right internal carotid artery aneurysm which the patient already knows about. After further discussing with the patient, considering that there was a possibility of seizure, EEG was done which did not show any seizure activity. Neurology was consulted again, recommended MRI with contrast in 24 hour EEG. Patient declined these diagnostic evaluations and left AMA. He was explained in detail about the adverse effects of leaving without further diagnostic e valuations. The patient understood and still wished to leave AMA. *Problems/Diagnosis: (1) Seizure (2) TIA (transient ischemic attack) (3) Migraine Status: Acute Total Time Spent on D/C: > 30 Minutes Date of Service: Nov 10, 2024 Billing Provider: KIRK SMALLWOOD MD Common Visit Codes: 06276-XIL/OBS DISCH DAY >30min ELIZABETH NOEL, RES Nov 10, 2024 16:52 KIRK SMALLWOOD MD Nov 11, 2024 19:54
== END 2024-11-10 16:04 | disposition left against medical advice (07) | DRG 103 ==
LOC: ER 21:46 → ED HOLD 11-09 01:28 → ORTHO 4S 11-09 07:20
PROVIDERS: ADMIT Hospitalist; ATTEND Internal Medicine
PROC: B3251ZZ Computerized Tomography (CT Scan) of Bilateral Common Carotid Arteries using Low Osmolar Contrast (ICD-10-PCS; principal; 2024-11-08)
PROC: B32G1ZZ Computerized Tomography (CT Scan) of Bilateral Vertebral Arteries using Low Osmolar Contrast (ICD-10-PCS; 2024-11-08)
PROC: B32R1ZZ Computerized Tomography (CT Scan) of Intracranial Arteries using Low Osmolar Contrast (ICD-10-PCS; 2024-11-08)
PROC: B3281ZZ Computerized Tomography (CT Scan) of Bilateral Internal Carotid Arteries using Low Osmolar Contrast (ICD-10-PCS; 2024-11-08)
DX: G43.909 Migraine, unspecified, not intractable, without status migrainosus (principal); N17.9 Acute kidney failure, unspecified; G45.9 Transient cerebral ischemic attack, unspecified; E87.20 Acidosis, unspecified; F14.10 Cocaine abuse, uncomplicated; Z66 Do not resuscitate; E87.6 Hypokalemia; Z53.21 Procedure and treatment not carried out due to patient leaving prior to being seen by health care provider; Z79.01 Long term (current) use of anticoagulants; Z79.899 Other long term (current) drug therapy
CPT/HCPCS: 36415; 70450; 70496; 70498; 70551; 71045; 80048; 80053; 80061; 80305; 81003; 82550; 82948; 83036; 83605; 83735; 83880; 84132; 84484; 85025; 85610; 85730; 87081; 93005; 95816; 96372; 96374; 96375; 97116; 97161; 99285; G0378; J0780; J1200; J1644; J3030; J7030; Q9967